=== PATIENT | female | born 1970 | race Caucasian/White ===

== ENCOUNTER → 2016-10-20 | Outpatient (CLI) | payer OTHER ==
--- NOTE | 2016-11-05 00:59 | ECWPNPC ---
PATIENT NAME: RAY RODRIGUEZ : 1970 GENDER: FEMALE VISIT DATE: 10/20/2016 DISCHARGE DATE: 10/20/16 1200 VISIT LOCKED DATE TIME: PHYSICIAN: FELIPE MCCOLLUM RESOURCE: FELIPE MCCOLLUM REASON FOR APPOINTMENT 1. MIGRANES HISTORY OF PRESENT ILLNESS HISTORY OF PRESENT ILLNESS: PAIN THE PATIENT DESCRIBES THE PAIN... FALL RISK SCREENING: SCREENING :NO FALLS IN THE PAST YEAR TODAY'S VISIT: NOTES: RATES PAIN TODAY 2/10. IS BEING CONSIDERED FOR. BOTOX TREATMENT FOR CHRONIC MIGRAINE. CURRENTLY IS TAKING 4189-9386 MG PER DAY OF IBUPROFEN FOR MIGRAINE CONTROL.REPORTS SHE HAS HAD MIGRAINES FOR MANY YEARS. MIGRAINE PAIN EFFECTS THE FOREHEAD AND TOP OF HEAD. DENIES ANY VISUAL LOSS, SCOTOMA OR AURA. DURACTION OF MIGRAINE PAIN IS CURRENTLY ONE HOUR OR LESS AND CAN OCCUR EVERY OTHER DAY OR AT LEAST 15 DAYS PER MONTHMIGRAINE EVENTS ARE ASSOCIATED WITH NAUSEA BUT NO VOMITING. MIGRAINE EVENTS ARE ALSO ASSOCIATED WITH PHOTOPHOBIA AND PHONOPHONIA. STATES DESPITE SEVERENESS OF THE HEADPAIN SHE PUSHED THROUGH HER DAILY ACTIVITIES. HAS NOT BEEN TO ED FOR MIGRAINES. PREVIOUSLY HAS BEEN TRIALED ON TOPAMAX, TRAMADOL, FIORICET FOR MIGRAINE PAIN. HAS LIMITED MEMORY OF ALL THE MEDS SHE HAS BEEN ON. CERVICAL DYSTONIA AFFECTS THE ROTATION OF HER NECK. ON BAD DAYS PAIN 6/10 WITH MIGRAINE, 7-8 WITH DYSTONIA NECK IS HARD TO MOVE. . CURRENT MEDICATIONS TAKING ZYRTEC 5 MG TABLET 1 TABLET NEEDED ORALLY ONCE A DAY TAKING SINGULAIR 10 MG TABLET 1 TABLET IN THE EVENING ORALLY ONCE A DAY TAKING SIMVASTATIN 20 MG TABLET 1 TABLET IN THE EVENING ORALLY ONCE A DAY TAKING CITALOPRAM HYDROBROMIDE 40 MG TABLET 1 TABLET ORALLY ONCE A DAY TAKING LAMOTRIGINE 150 MG TABLET 2 TABLETS ORALLY DAILY TAKING VENTOLIN HFA 108 (90 BASE) MCG/ACT AEROSOL SOLUTION 2 PUFFS NEEDED INHALATION EVERY 4 HRS TAKING TIZANIDINE HCL 2 MG TABLET 1 TABLET NEEDED ORALLY BEFORE BEDTIME MAY REPEAT IN 4 HRS MDD2 NOT-TAKING VALIUM 10 MG TABLET 1 TABLET NEEDED ORALLY 1 HR BEFORE MRI NOT-TAKING SUDAFED 30 MG TABLET 1-2 TABLET NEEDED ORALLY EVERY 6 HRS NOT-TAKING NASACORT AQ 55 MCG/ACT AEROSOL 1 PUFF IN EACH NOSTRIL NASALLY TWICE A DAY NOT-TAKING GUAIFENESIN 400 MG TABLET 1 TABLET NEEDED ORALLY EVERY 4 HRS FOR CONGESTION MEDICATION LIST REVIEWED AND RECONCILED WITH THE PATIENT PAST MEDICAL HISTORY NECK DYSTONIA LEFT HIP PAIN HYPERCHOLESTEROLEMIA DEPRESSION ALLERGIES PENICILLIN (FOR ALLERGIES USE ONLY): HIVES: ALLERGY ERYTHROMYCIN: CHEST DISCOMFORT: SIDE EFFECTS ENVIRONMENTAL: SNEEZING, HEADACHE, NASAL CONGESTION: ALLERGY SOCIAL HISTORY GENERAL: TOBACCO USE ARE YOU A:NONSMOKER LEARNING BARRIERS / SPECIAL NEEDS ORIENTED TO PLAN OF CARE: PATIENT, PAIN MANAGEMENT PATIENT, ORIENTED TO PLAN OF CARE: PATIENT, PAIN MANAGEMENT PATIENT. NEW PATIENT PAIN DIARY TODAY'S VISITNOTES FROM 0-10, WHAT LEVEL IS YOUR PAIN TODAY?0 PAIN CLINIC PFS, CLERGY, PUBLIC HEALTH REFERRALS PFS REFERRAL NEEDED?NO CLERGY REFERRAL NEEDED?NO PUBLIC HEALTH REFERRAL NEEDED?NO WAS THE PROVIDER NOTIFIED OF ANY PERTINENT INFO?NO PFS REFERRAL NEEDED?NO CLERGY REFERRAL NEEDED?NO PUBLIC HEALTH REFERRAL NEEDED?NO WAS THE PROVIDER NOTIFIED OF ANY PERTINENT INFO?NO REVIEW OF SYSTEMS CONSTITUTIONAL: ANY CHANGE IN YOUR MEDICAL CONDITION? NO . CHILLS NO . FEVER NO . INFECTION: DO YOU HAVE NEW INFECTIONS? NO . DO YOU HAVE HISTORY OF MRSA? NO . MUSCULOSKELETAL: ANY NEW PATTERNS OF PAIN OR NUMBNESS? NO . GASTROENTEROLOGY: ANY NEW CHANGE IN BOWEL CONTROL? NO . GENITOURINARY: ANY NEW CHANGE IN BLADDER CONTROL? NO . IS THERE A CHANCE YOU COULD BE ? NO . HEMATOLOGY/LYMPH: DO YOU TAKE ANY BLOOD THINNERS? (FOR EXAMPLE- COUMADIN, PLAVIX, AGGRENOX, PLATEL, PRADAXA, OR XARELTO) NO . WHEN WAS YOUR LAST DOSE? DATE: TIME: . NEUROLOGY: HAVE YOU FALLEN IN THE PAST 6 MONTHS? NO . ANY NEW EXTREMITY NUMBNESS OR WEAKNESS? NO . CARDIOLOGY: DO YOU HAVE A PACEMAKER OR DEFIBRILLATOR? NO . STROKE DENIES HISTORY OF STROKE . CHEST PAIN PATIENT DENIES . RESPIRATORY: HAVE YOU BEEN SICK IN THE PAST WEEK? NO . FEVER NO . FLU LIKE SYMPTOMS? NO . COUGH NO . INTEGUMENTARY: DO YOU HAVE ANY RASHES OR OPEN SORES? NO . ALLERGIC/IMMUNO: ARE YOU ALLERGIC TO SHELLFISH OR IV DYE? NO . ANY NEW ALLERGIES? NO . PSYCHIATRIC: DO YOU HAVE THOUGHTS OF HURTING YOURSELF OR SOMEONE ELSE? NO . ARE YOU ABUSED, NEGLECTED, OR IN AN UNSAFE ENVIRONMENT? NO . ENDOCRINOLOGY: ARE YOU DIABETIC? NO . OTHER: DO YOU NEED ANY PRESCRIPTIONS? NO . IF YES, PLEASE LIST: ____ . ANY NEW PROBLEMS WITH YOUR MEDICATIONS? NO . WHEN DID YOU LAST EAT? ____ . WHEN DID YOU LAST DRINK? ____ . WHAT DID YOU LAST DRINK? ____ . NAME OF PERSON DRIVING YOU HOME? ____ . DO YOU HAVE ANY OTHER QUESTIONS OR CONCERNS NO . PSYCHOLOGY: PATIENT COMPLAINING OF RELATED TO TIME DELAY IN OBTAINING INJECTIONS AND PAIN RELIEF . REVIEWED BY: PROVIDER: FELIPE KING . VITAL SIGNS WT 185 LBS, HT 63 IN, BMI 32.77 INDEX, BP 124/67 MM HG, HR 71 /MIN, RR 18 /MIN, TEMP 97.1 F, OXYGEN SAT % 98, NA INITIALS TL 1126, REVIEWED BY: KG. EXAMINATION GENERAL EXAMINATION: GENERAL APPEARANCE:WELL GROOMED. PSYCHALERT , ORIENTED X 3 , APPROPRIATE MOOD AND AFFECT . HEENT:NORMOCEPHALIC, NO LYMPHADEMOPHATHY, NO THYROMEGLY. LUNGS:CLEAR TO AUSCULTATION BILATERALLY, NO WHEEZES, RALES OR RHONCHI. HEART:HEART RATE REGULAR, NO MURMURS, CLICK OR RUBS. MUSCULOSKELETAL:MUSCLE STRENGTH TESTING 5/5 BILATERAL UPPER EXTREMITIES., TRIGGER POINTS:, ELICITED WITH PALPATION OVER CERVICAL SPINOUS PROCESSES AND ACROSS THE TRAPEZIUS MUSCLES BILATERALLY. RESTRICTION OF ROM IS NOTED. POINT TENDERNESS AND TIGHT FIBROUS BANDS IDENTIFIED OVER TRAPEZIUS MUSCLES, LEFT GREATER THAN RIGHT. NO TMJ CLICK OR TENDERNESS. NEUROLOGIC EXAM:CN'S II-XII GROSSLY INTACT. EOM'S INTACT WITHOUT NYSTAGMUS. FINGER TO FINGER COORDINATION IS NONDYSMETRIC. SPEACH NORMAL. SOME DIFFICULTY WITH HISTORY RECALL. DECREASED STRENGTH OF SHOULDER SHRUG ON LEFT. NO SENSORY DEFICEIT TO LIGHT TOUCH OVER FACE, NECK OR UPPER EXTREMITIES.. DIAGNOSTIC TESTS REVIEWEDMRI OF CERVICAL SPINE COMPLETED ON 09/23/16 REVIEWED: CERVICAL SPONDYLOSIS AT THE C3-4 THROUGH C6-7 LEVELS MOST SIGNIFICANT AT THE C4-5 LEVELS WITH THERE IS MINIMAL SPINAL CORD COMPRESSION. IN PARTICULAR THERE IS UNCINATE PROCESS HYPERTROPHY NOTED AT THE C3-4 LEVEL ON THE LEFT BILATERALLY AT THE C4-5 LEVEL AND LEFT FACET HYPERTROPHY IS NOTED THERE IS BILATERAL UNCINATE PROCESS HYPERTROPHY FACET HYPERTROPHY NOTED AT THE C5-6 LEVEL. THERE IS A DISC BULGE AND SMALL CENTRAL DISC PROTRUSION NOTED AT THE C5-6 LEVEL.. ASSESSMENTS CHRONIC MIGRAINE WITHOUT AURA WITHOUT STATUS MIGRAINOSUS, NOT INTRACTABLE - G43.709 (PRIMARY) SPONDYLOSIS WITHOUT MYELOPATHY OR RADICULOPATHY, CERVICAL REGION - M47.812 SPONDYLOSIS WITHOUT MYELOPATHY OR RADICULOPATHY, CERVICOTHORACIC REGION - M47.813 CERVICAL DYSTONIA. TREATMENT CHRONIC MIGRAINE WITHOUT AURA WITHOUT STATUS MIGRAINOSUS, NOT INTRACTABLE CHEMODENERVATION (BOTOX) MISC-MIGRAINE HEADACHES NOTES: COUNT INCLUDES THE [facility] SCHEDULE BOTOX FOR MIGRAINE WHEN AUTH IS IN PLACE. SPONDYLOSIS WITHOUT MYELOPATHY OR RADICULOPATHY, CERVICAL REGION NOTES: CONTINUE EXERCISES AND STRETCHES. CONTINUE CURRENT MEDS. PLAN FOR CERVICAL INJECTION NEXT WEEK. FOLLOW UP ALREADY SCEHDULED FOR CERVICAL BLOCK ON 10/27/16 ELECTRONICALLY SIGNED BY JAMILA ZUÑIGA ON 11/04/2016 AT 08:47 AM EST DISCLAIMER : THIS IS A VISIT SUMMARY EXTRACTED FROM THE [employer] CHART. IT IS NOT A COPY OF THE [employer] PROGRESS NOTE. DAVINA
== END ==
LOC: M PAIN 11:20
PROVIDERS: ATTEND Nurse Practitioner Family
DX: Z09 Encounter for follow-up examination after completed treatment for conditions other than malignant neoplasm (principal); G43.709 Chronic migraine without aura, not intractable, without status migrainosus; M47.812 Spondylosis without myelopathy or radiculopathy, cervical region; M47.813 Spondylosis without myelopathy or radiculopathy, cervicothoracic region; G24.9 Dystonia, unspecified; M25.552 Pain in left hip; E78.00 Pure hypercholesterolemia, unspecified; E32.9 Disease of thymus, unspecified; Z88.0 Allergy status to penicillin; Z88.8 Allergy status to other drugs, medicaments and biological substances; J30.89 Other allergic rhinitis; Z79.1 Long term (current) use of non-steroidal anti-inflammatories (NSAID); Z79.899 Other long term (current) drug therapy

== ENCOUNTER → 2016-10-27 | Outpatient (CLI) | payer OTHER ==
[~2016-10-27] MED LIST: ATROPINE SULF 1MG/10ML SYRINGE (J0461) As Ordered ONE; BUPIVACAINE HCL 0.25% 30 ML VIAL As Ordered ONE; ISOVUE-M 300 61% 15ML VIAL (Q9967) As Ordered ONE; LIDOCAINE 1% SDV INJ 30 ML VIAL As Ordered ONE; TRIAMCINOLONE ACETONIDE SUSP 40 MG/ML VIAL (J3301) As Ordered ONE; diazePAM 5 MG TAB As Ordered ONE; oxyCODONE 5MG TAB As Ordered ONE
--- NOTE | 2016-10-27 21:04 | REP ---
Fluoroscopic guidance for cervical facet block: 10/27/2016. Clinical history: Neck pain. Findings. A single image from C-arm fluoroscopy provided to Dr. Martins of the pain clinic for left cervical facet block. That image shows needles at the C3-4 and C4-5 levels with a total of three needles. Fluoroscopy time: 1 minute 12 seconds. Signed by Amrik Leo MD 10/28/2016 09:29 A
--- NOTE | 2016-10-30 01:12 | ECWPNPC ---
PATIENT NAME: RAY RODRIGUEZ : 1970 GENDER: FEMALE VISIT DATE: 10/27/2016 DISCHARGE DATE: 10/27/16 1741 VISIT LOCKED DATE TIME: PHYSICIAN: SKY WHITE RESOURCE: SKY WHITE REASON FOR APPOINTMENT 1. CFBT HISTORY OF PRESENT ILLNESS HISTORY OF PRESENT ILLNESS: PAIN THE PATIENT DESCRIBES THE PAIN... FALL RISK SCREENING: SCREENING :ONE FALL WITH INJURY IN THE PAST YEAR CURRENT MEDICATIONS TAKING ZYRTEC 5 MG TABLET 1 TABLET NEEDED ORALLY ONCE A DAY, NOTES: 10/26/16@1000 TAKING SINGULAIR 10 MG TABLET 1 TABLET IN THE EVENING ORALLY ONCE A DAY, NOTES: 10/26/16@999 TAKING SIMVASTATIN 20 MG TABLET 1 TABLET IN THE EVENING ORALLY ONCE A DAY, NOTES: 10/26/16@999 TAKING CITALOPRAM HYDROBROMIDE 40 MG TABLET 1 TABLET ORALLY ONCE A DAY, NOTES: 10/26/16@999 TAKING LAMOTRIGINE 150 MG TABLET 2 TABLETS ORALLY DAILY, NOTES: 10/26/16@999 TAKING VENTOLIN HFA 108 (90 BASE) MCG/ACT AEROSOL SOLUTION 2 PUFFS NEEDED INHALATION EVERY 4 HRS, NOTES: 1 WEEK AGO TAKING TIZANIDINE HCL 2 MG TABLET 1 TABLET NEEDED ORALLY BEFORE BEDTIME MAY REPEAT IN 4 HRS MDD2, NOTES: 10/25/16@1000 NOT-TAKING VALIUM 10 MG TABLET 1 TABLET NEEDED ORALLY 1 HR BEFORE MRI NOT-TAKING SUDAFED 30 MG TABLET 1-2 TABLET NEEDED ORALLY EVERY 6 HRS NOT-TAKING NASACORT AQ 55 MCG/ACT AEROSOL 1 PUFF IN EACH NOSTRIL NASALLY TWICE A DAY NOT-TAKING GUAIFENESIN 400 MG TABLET 1 TABLET NEEDED ORALLY EVERY 4 HRS FOR CONGESTION MEDICATION LIST REVIEWED AND RECONCILED WITH THE PATIENT PAST MEDICAL HISTORY NECK DYSTONIA LEFT HIP PAIN HYPERCHOLESTEROLEMIA DEPRESSION ALLERGIES PENICILLIN (FOR ALLERGIES USE ONLY): HIVES: ALLERGY ERYTHROMYCIN: CHEST DISCOMFORT: SIDE EFFECTS ENVIRONMENTAL: SNEEZING, HEADACHE, NASAL CONGESTION: ALLERGY SOCIAL HISTORY GENERAL: TOBACCO USE ARE YOU A:NONSMOKER LEARNING BARRIERS / SPECIAL NEEDS ORIENTED TO PLAN OF CARE: PATIENT, PAIN MANAGEMENT PATIENT, ORIENTED TO PLAN OF CARE: PATIENT, PAIN MANAGEMENT PATIENT. NEW PATIENT PAIN DIARY TODAY'S VISITNOTES FROM 0-10, WHAT LEVEL IS YOUR PAIN TODAY?0 PAIN CLINIC PFS, CLERGY, PUBLIC HEALTH REFERRALS PFS REFERRAL NEEDED?NO CLERGY REFERRAL NEEDED?NO PUBLIC HEALTH REFERRAL NEEDED?NO WAS THE PROVIDER NOTIFIED OF ANY PERTINENT INFO?NO PFS REFERRAL NEEDED?NO CLERGY REFERRAL NEEDED?NO PUBLIC HEALTH REFERRAL NEEDED?NO WAS THE PROVIDER NOTIFIED OF ANY PERTINENT INFO?NO REVIEW OF SYSTEMS CONSTITUTIONAL: ANY CHANGE IN YOUR MEDICAL CONDITION? NO . CHILLS NO . FEVER NO . INFECTION: DO YOU HAVE NEW INFECTIONS? NO . DO YOU HAVE HISTORY OF MRSA? NO . MUSCULOSKELETAL: ANY NEW PATTERNS OF PAIN OR NUMBNESS? NO . GASTROENTEROLOGY: ANY NEW CHANGE IN BOWEL CONTROL? NO . GENITOURINARY: ANY NEW CHANGE IN BLADDER CONTROL? NO . IS THERE A CHANCE YOU COULD BE ? NO . HEMATOLOGY/LYMPH: DO YOU TAKE ANY BLOOD THINNERS? (FOR EXAMPLE- COUMADIN, PLAVIX, AGGRENOX, PLATEL, PRADAXA, OR XARELTO) NO . WHEN WAS YOUR LAST DOSE? DATE: TIME: . NEUROLOGY: HAVE YOU FALLEN IN THE PAST 6 MONTHS? NO . ANY NEW EXTREMITY NUMBNESS OR WEAKNESS? NO . CARDIOLOGY: DO YOU HAVE A PACEMAKER OR DEFIBRILLATOR? NO . RESPIRATORY: HAVE YOU BEEN SICK IN THE PAST WEEK? NO . FEVER NO . FLU LIKE SYMPTOMS? NO . COUGH NO . INTEGUMENTARY: DO YOU HAVE ANY RASHES OR OPEN SORES? NO . ALLERGIC/IMMUNO: ARE YOU ALLERGIC TO SHELLFISH OR IV DYE? NO . ANY NEW ALLERGIES? NO . PSYCHIATRIC: DO YOU HAVE THOUGHTS OF HURTING YOURSELF OR SOMEONE ELSE? NO . ARE YOU ABUSED, NEGLECTED, OR IN AN UNSAFE ENVIRONMENT? NO . ENDOCRINOLOGY: ARE YOU DIABETIC? NO . OTHER: DO YOU NEED ANY PRESCRIPTIONS? NO . IF YES, PLEASE LIST: ____ . ANY NEW PROBLEMS WITH YOUR MEDICATIONS? NO . WHEN DID YOU LAST EAT? ____10/26/16@2200 . WHEN DID YOU LAST DRINK? ____10/26/16@2200 . WHAT DID YOU LAST DRINK? ____WATER . NAME OF PERSON DRIVING YOU HOME? ____ELISHADEEPTHI RODRIGUEZ . DO YOU HAVE ANY OTHER QUESTIONS OR CONCERNS NO . REVIEWED BY: PROVIDER: . VITAL SIGNS WT 185 LBS, HT 63 IN, BMI 32.77 INDEX, BP 103/62 MM HG, HR 61 /MIN, RR 16 /MIN, TEMP 96.0 F, OXYGEN SAT % 96, NA INITIALS TL 1434, REVIEWED BY: VD. ASSESSMENTS SPONDYLOSIS WITHOUT MYELOPATHY OR RADICULOPATHY, CERVICAL REGION - M47.812 (PRIMARY) PROCEDURES PN CERVICAL FACET BLOCK HIGH LATERAL CERVICAL PRE PROCEDURE DIAGNOSIS CERVICAL SPONDYLOSIS POST PROCEDURE DIAGNOSIS CERVICAL SPONDYLOSIS PROCEDURE LEFT C4-C5 AND LEFT C5-C6 FACET BLOCK SURGEON DR. SKY WHITE NEPHROLOGY SOCIAL WORKER NONE ANESTHESIA LOCAL PRE PROCEDURE NOTE THE PATIENT HAS HISTORY OF CHRONIC CERVICAL PAIN. I EVALUATE THE PATIENT AND REVIEWED THE CHART. I WENT OVER THE RISKS, ALTERNATIVES, AND BENEFITS ASSOCIATED WITH THIS PROCEDURE. THE PATIENT WOULD LIKE TO PROCEED AND GIVE CONSENT TO PERFORMED THE PROCEDURE. THE PATIENT DENIES UNEXPLAINABLE WEIGHT LOSS, FEVER, CHILLS, OR NEW CHANGES IN URINARY OR BOWEL CONTROL., . DESCRIPTION OF PROCEDURE THE PATIENT WAS BROUGHT TO THE PROCEDURE ROOM AND PLACED IN THE [] LATERAL DECUBITUS POSITION. THE CERVICAL AREA WAS CLEANED WITH CHLORAPREP SOLUTION AND DRAPED ASEPTICALLY. THE PROCEDURE WAS DONE UNDER STERILE CONDITIONS. I CHECKED LATERALITY AND THE LEVEL WHERE THE PROCEDURE WAS GOING TO BE PERFORMED WITH THE PATIENT AND THE SUPPORTING STAFF AT THE MOMENT OF THE TIME OUT IN THE PROCEDURE ROOM. UNDER FLUOROSCOPIC GUIDANCE, TARGET POINT WAS SELECTED AT THE LEFT C4-C5 AND LEFT C5-C6 FACET. TARGET POINTS WERE SELECTED AFTER LATERAL ROTATION AND TILT OF THE MAGNIFIER OF THE C-ARM. LIDOCAINE 0.5% WAS USED TO NUMB THE SKIN AND THE SUBCUTANEOUS TISSUE BELOW IT. SPINAL NEEDLES, 22-GAUGE, WERE ADVANCED UNDER FLUOROSCOPIC GUIDANCE AND FOLLOWING PATIENT FEEDBACK UNTIL THE TARGETS WERE TOUCHED. THE POSITION OF THE NEEDLES WAS VERIFIED WITH AP AND LATERAL VIEWS. AFTER PROPER POSITION OF THE NEEDLES WAS ACHIEVED, ISOVUE M DYE 30, 0.1 ML WAS INJECTED SHOWING SPREAD OF THE DYE. THEN A SOLUTION OF 0.9 ML OF BUPIVACAINE 0.125% AND KENALOG [10] MG WAS INJECTED AT EACH SITE. THERE WAS NO EVIDENCE OF BLOOD, PARESTHESIA OR CEREBROSPINAL FLUID DURING THE PROCEDURE. THE PATIENT WAS SENT TO THE RECOVERY ROOM. THE PATIENT WAS MOVING THE EXTREMITIES AND DOING WELL. THERE WAS NO COMPLICATION DURING THE PROCEDURE. FLUOROSCOPY TIME WAS 1 MINUTE AND 6 SECONDS POST PROCEDURE NOTE THE PATIENT WILL BE SEEN IN A FOLLOW UP IN THE NEXT FEW WEEKS. INSTRUCTIONS WERE GIVEN, QUESTIONS WERE ANSWERED, AND THE PATIENT EXPRESSED UNDERSTANDING AND AGREED WITH THE PLAN DIAGNOSTIC IMAGING [facility] FACET BLOCK (PAIN)[id number] PROCEDURE CODES 37973 INJ PARAVERT F JNT C/T 1 LEV 31945 INJ PARAVERT F JNT C/T 2 LEV 6045F RADXPS IN END [id number] PXD FOLLOW UP 3 WEEKS ELECTRONICALLY SIGNED BY SKY WHITE MD ON 10/29/2016 AT 05:57 PM EST DISCLAIMER : THIS IS A VISIT SUMMARY EXTRACTED FROM THE [employer] CHART. IT IS NOT A COPY OF THE [employer] PROGRESS NOTE. MTDD
== END ==
LOC: M PAIN 14:00
PROVIDERS: ATTEND Anesthesiology
DX: G89.29 Other chronic pain (principal); M47.812 Spondylosis without myelopathy or radiculopathy, cervical region; M54.2 Cervicalgia; G24.9 Dystonia, unspecified; Z79.899 Other long term (current) drug therapy; Z88.0 Allergy status to penicillin; Z88.1 Allergy status to other antibiotic agents; Z91.09 Other allergy status, other than to drugs and biological substances
CPT/HCPCS: 64490; 64491; J3301; Q9967

== ENCOUNTER → 2016-11-01 | Outpatient (CLI) | payer OTHER ==
--- NOTE | 2016-11-03 00:56 | ECWPNPC ---
PATIENT NAME: RAY RODRIGUEZ : 1970 GENDER: FEMALE VISIT DATE: 11/01/2016 DISCHARGE DATE: 11/01/16914 VISIT LOCKED DATE TIME: PHYSICIAN: SKY WHITE RESOURCE: SKY WHITE REASON FOR APPOINTMENT 1. NECK PAIN HISTORY OF PRESENT ILLNESS HISTORY OF PRESENT ILLNESS: PAIN THE PATIENT DESCRIBES THE PAIN... 46 YEAR OLD FEMALE PATIENT WITH HISTORY OF CHRONIC NECK PAIN. PATIENT DESCRIBES THE PAIN ACHING WITH THE PAIN COMING AND GOING WITH A PAIN SCORE OF 4/10. PATIENT RECEIVED A CERVICAL FACET BLOCK ON 10/27/16 AND STATES THAT THE INJECTION HAS HELPED WITH THE CERVICAL PAIN. PATIENT REPORTS THAT HER NECK FEELS BETTER AND HAS INCREASED MOBILITY AND FUNCTIONALITY FROM THE INJECTION. CURRENTLY THE PATIENT IS ONLY USING TIZANIDINE TO HELP WITH THE NECK PAIN AND SPASMS. PATIENT DENIES UNEXPLAINABLE WEIGHT LOSS, FEVER, CHILLS, NEW CHANGES ON HER URINARY OR BOWEL CONTROL. FALL RISK SCREENING: SCREENING :NO FALLS IN THE PAST YEAR CURRENT MEDICATIONS TAKING ZYRTEC 5 MG TABLET 1 TABLET NEEDED ORALLY ONCE A DAY, NOTES: 10/26/16@1000 TAKING SINGULAIR 10 MG TABLET 1 TABLET IN THE EVENING ORALLY ONCE A DAY, NOTES: 10/26/16@1000 TAKING SIMVASTATIN 20 MG TABLET 1 TABLET IN THE EVENING ORALLY ONCE A DAY, NOTES: 10/26/16@1000 TAKING CITALOPRAM HYDROBROMIDE 40 MG TABLET 1 TABLET ORALLY ONCE A DAY, NOTES: 10/26/16@999 TAKING LAMOTRIGINE 150 MG TABLET 2 TABLETS ORALLY DAILY, NOTES: 10/26/16@1000 TAKING VENTOLIN HFA 108 (90 BASE) MCG/ACT AEROSOL SOLUTION 2 PUFFS NEEDED INHALATION EVERY 4 HRS, NOTES: 1 WEEK AGO TAKING TIZANIDINE HCL 2 MG TABLET 1 TABLET NEEDED ORALLY BEFORE BEDTIME MAY REPEAT IN 4 HRS MDD2, NOTES: 10/25/16@1000 NOT-TAKING VALIUM 10 MG TABLET 1 TABLET NEEDED ORALLY 1 HR BEFORE MRI NOT-TAKING SUDAFED 30 MG TABLET 1-2 TABLET NEEDED ORALLY EVERY 6 HRS NOT-TAKING NASACORT AQ 55 MCG/ACT AEROSOL 1 PUFF IN EACH NOSTRIL NASALLY TWICE A DAY NOT-TAKING GUAIFENESIN 400 MG TABLET 1 TABLET NEEDED ORALLY EVERY 4 HRS FOR CONGESTION MEDICATION LIST REVIEWED AND RECONCILED WITH THE PATIENT PAST MEDICAL HISTORY NECK DYSTONIA LEFT HIP PAIN HYPERCHOLESTEROLEMIA DEPRESSION ALLERGIES PENICILLIN (FOR ALLERGIES USE ONLY): HIVES: ALLERGY ERYTHROMYCIN: CHEST DISCOMFORT: SIDE EFFECTS ENVIRONMENTAL: SNEEZING, HEADACHE, NASAL CONGESTION: ALLERGY SURGICAL HISTORY LEFT CARPAL TUNNEL RELEASE 2010 RIGHT CARPAL TUNNEL RELEASE 2010 BTL 2000 RIGHT SHOULDER SKIN CANCER REMOVAL 2014 C SECTION 1989 FAMILY HISTORY NO FAMILY HISTORY DOCUMENTED. SOCIAL HISTORY GENERAL: TOBACCO USE ARE YOU A:NONSMOKER LEARNING BARRIERS / SPECIAL NEEDS ORIENTED TO PLAN OF CARE: PATIENT, PAIN MANAGEMENT PATIENT, ORIENTED TO PLAN OF CARE: PATIENT, PAIN MANAGEMENT PATIENT. NEW PATIENT PAIN DIARY TODAY'S VISITNOTES FROM 0-10, WHAT LEVEL IS YOUR PAIN TODAY?0 PAIN CLINIC PFS, CLERGY, PUBLIC HEALTH REFERRALS PFS REFERRAL NEEDED?NO CLERGY REFERRAL NEEDED?NO PUBLIC HEALTH REFERRAL NEEDED?NO WAS THE PROVIDER NOTIFIED OF ANY PERTINENT INFO?NO PFS REFERRAL NEEDED?NO CLERGY REFERRAL NEEDED?NO PUBLIC HEALTH REFERRAL NEEDED?NO WAS THE PROVIDER NOTIFIED OF ANY PERTINENT INFO?NO HOSPITALIZATION/MAJOR DIAGNOSTIC PROCEDURE SURGERIES REVIEW OF SYSTEMS CONSTITUTIONAL: ANY CHANGE IN YOUR MEDICAL CONDITION? NO . CHILLS NO . FEVER NO . INFECTION: DO YOU HAVE NEW INFECTIONS? NO . DO YOU HAVE HISTORY OF MRSA? NO . MUSCULOSKELETAL: ANY NEW PATTERNS OF PAIN OR NUMBNESS? NO . GASTROENTEROLOGY: ANY NEW CHANGE IN BOWEL CONTROL? NO . GENITOURINARY: ANY NEW CHANGE IN BLADDER CONTROL? NO . IS THERE A CHANCE YOU COULD BE ? NO . HEMATOLOGY/LYMPH: DO YOU TAKE ANY BLOOD THINNERS? (FOR EXAMPLE- COUMADIN, PLAVIX, AGGRENOX, PLATEL, PRADAXA, OR XARELTO) NO . WHEN WAS YOUR LAST DOSE? DATE: TIME: . NEUROLOGY: HAVE YOU FALLEN IN THE PAST 6 MONTHS? NO . ANY NEW EXTREMITY NUMBNESS OR WEAKNESS? NO . CARDIOLOGY: DO YOU HAVE A PACEMAKER OR DEFIBRILLATOR? NO . RESPIRATORY: HAVE YOU BEEN SICK IN THE PAST WEEK? NO . FEVER NO . FLU LIKE SYMPTOMS? NO . COUGH NO . INTEGUMENTARY: DO YOU HAVE ANY RASHES OR OPEN SORES? NO . ALLERGIC/IMMUNO: ARE YOU ALLERGIC TO SHELLFISH OR IV DYE? NO . ANY NEW ALLERGIES? NO . PSYCHIATRIC: DO YOU HAVE THOUGHTS OF HURTING YOURSELF OR SOMEONE ELSE? NO . ARE YOU ABUSED, NEGLECTED, OR IN AN UNSAFE ENVIRONMENT? NO . ENDOCRINOLOGY: ARE YOU DIABETIC? NO . OTHER: DO YOU NEED ANY PRESCRIPTIONS? YES, TIZANIDINE . IF YES, PLEASE LIST: ____ . ANY NEW PROBLEMS WITH YOUR MEDICATIONS? NO . WHEN DID YOU LAST EAT? ____ . WHEN DID YOU LAST DRINK? ____ . WHAT DID YOU LAST DRINK? ____ . NAME OF PERSON DRIVING YOU HOME? ____ . DO YOU HAVE ANY OTHER QUESTIONS OR CONCERNS NO . REVIEWED BY: PROVIDER: SKY WHITE MD . VITAL SIGNS WT 190 LBS, HT 63 IN, BMI 33.65 INDEX, BP 114/76 MM HG, HR 54 /MIN, RR 16 /MIN, TEMP 97.9 F, OXYGEN SAT % 98%, NA INITIALS SC 08:58, REVIEWED BY: AD. EXAMINATION : PATIENT IS ALERT O X 3 AND COOPERATIVE. TENDERNESS IN THE CERVICAL AREA. PATIENT FEELS PULL TOWARDS THE LEFT SHOULDER. MRI OF THE CERVICAL SPINE DONE ON 09/23/16 SHOWS CERVICAL SPONDYLOSIS AND DISC BULGES AT C3-C4 THROUGH C6-C7. ASSESSMENTS SPONDYLOSIS WITHOUT MYELOPATHY OR RADICULOPATHY, CERVICAL REGION - M47.812 (PRIMARY) TREATMENT SPONDYLOSIS WITHOUT MYELOPATHY OR RADICULOPATHY, CERVICAL REGION NOTES: WE DISCUSSED SEVERAL ISSUES WITH MRS. RODRIGUEZ'S PAIN MANAGEMENT CASE. AT THIS TIME THE PATIENT WILL CONTINUE WITH THE SAME MEDICATION REGIME BEFORE. PATIENT REPORTS HAVING RELIEF FROM THE CERVICAL FACET BLOCK. PATIENT IS WAITING TO HEAR FROM DR. VELASQUEZ'S OFFICE FOR THE BOTOX FOR DYSTONIA. I WOULD ALSO LIKE TO SPEAK WITH THE BOTOX PAPER COATING SUPERVISOR TO CHECK TO SEE HOW OFTEN THE PATIENT CAN GET BOTOX. PATIENT IS A CANDIDATE FOR BOTOX FOR THE MIGRAINES BUT ALSO WOULD NEED IT FOR THE DYSTONIA. PATIENT WILL RETURN TO THE CLINIC IN 1 MONTH TO DISCUSS HER CASE FURTHER WITH FELIPE CASE. INSTRUCTIONS WERE GIVEN, QUESTIONS WERE ANSWERED, PATIENT REPORTS UNDERSTANDING AND AGREES WITH THE PLAN. I, KULDEEP MARCELINO, DOCUMENTED THE ABOVE INFORMATION ACTING A SCRIBE FOR DR. WHITE. I HAVE REVIEWED THE ABOVE DOCUMENT, WRITTEN BY KULDEEP RENE AND I VERIFY THAT IT IS ACCURATE. PROCEDURE CODES FA211 ESTABILISHED PATIENT [facility] CHARGE C9979 DOC MEDS VERIFIED W/PT OR RE R3440 PAIN ASSESS POS TOOL F/U PLAN DOC FOLLOW UP 4 WEEKS ELECTRONICALLY SIGNED BY SKY WHITE MD ON 11/02/2016 AT 02:15 PM EST DISCLAIMER : THIS IS A VISIT SUMMARY EXTRACTED FROM THE [employer] CHART. IT IS NOT A COPY OF THE [employer] PROGRESS NOTE. DAVINA
== END ==
LOC: M PAIN 08:40
PROVIDERS: ATTEND Anesthesiology
DX: Z09 Encounter for follow-up examination after completed treatment for conditions other than malignant neoplasm (principal); G89.29 Other chronic pain; M47.812 Spondylosis without myelopathy or radiculopathy, cervical region; G24.3 Spasmodic torticollis; E78.00 Pure hypercholesterolemia, unspecified; F32.9 Major depressive disorder, single episode, unspecified; Z88.0 Allergy status to penicillin; Z88.1 Allergy status to other antibiotic agents; J30.2 Other seasonal allergic rhinitis; Z79.899 Other long term (current) drug therapy

== ENCOUNTER 2017-08-03 03:11 | Emergency (ER) | payer OTHER, SELFPAY ==
[~2017-08-03] VITALS: Ht 160 cm; Wt 86.4 kg
--- NOTE | 2017-08-03 04:00 | REPUSA ---
CLINICAL HISTORY: Neck pain. TECHNIQUE: Multiple axial images were obtained through the cervical spine. Images were also reconstru cted in coronal and sagittal planes. The study was performed without IV contrast. COMMENTS: There is no fracture or spondylolisthesis visualized. The paraspinal soft tissues are unremarkable. T here are no lytic or blastic lesions. Straightening of cervical lordosis is seen, suggesting muscular spasm. There is evidence of multilev el disk disease, demonstrated by osteophytosis and endplate sclerosis. Mild multilevel degenerative disc disease. IMPRESSION: 1. No fracture or spondylolisthesis. 2. Straightening of cervical lordosis is seen, suggesting muscular spasm. 3. Multilevel spondylosis. Thank you for your kind referral of this patient.
--- NOTE | 2017-08-03 04:00 | REPUSA ---
CLINICAL HISTORY: Head trauma. TECHNIQUE: Multiple axial brain CT scan sections were obtained from base to vertex without contrast a dministration. COMMENTS: Right frontal, temporal acute subarachnoid hemorrhage. There is no evidence of skull fracture. The study shows normal configuration of sella turcica. There is no mass effect or midline shift. No hydrocephalus is present. No abnormal calcifications are noted. No other acute significant abnormalities are seen either in the posterior fossa or supratentorial com partment. The sinuses and mastoid air cells are patent. IMPRESSION: Right frontal, temporal acute subarachnoid hemorrhage. No associated mass effect or brain herniation. No associated significant edema. No skull fracture. Thank you for your kind referral of this patient.
--- NOTE | 2017-08-03 04:14 | REP ---
Clinical: Trauma. Fall. Technique: AP, lateral, bilateral oblique views of the right wrist. Findings: There is a comminuted Colles' fracture of the distal radial metaphysis extending through the articular surface with posterolateral displacement fracture fragments as well as a nondisplaced ulnar styloid fracture. Fracture of the carpal bones and subtle subluxation through the proximal carpal row cannot be excluded at this time. Surrounding soft tissue swelling noted. Impression: 1. Comminuted Colles' fracture of the distal radius along with nondisplaced ulnar styloid fracture. 2. Subluxation and widening through the scapholunate space and possible subtle fractures involving the maximal carpal row cannot be excluded. Signed by Ray Multani MD 08/03/2017 04:06 A
[2017-08-03 05:15] LABS: BASO % 0.4 % (0.0-1.0); EOS # 0.1 10^3/uL (0.0-0.50); EOS % 0.5 % (0.0-3.0); IMMATURE GRANULOCYTE % 0.3 % (0-0); LYMPH # 1.1 10^3/uL (1.5-4.5); LYMPH % 10.2 % (24.0-44.0); MEAN CORPUSCULAR HEMOGLOBIN 29.6 pg (27.0-33.0); MEAN CORPUSCULAR HGB CONC 32.7 g/dl (32.0-36.5); MEAN CORPUSCULAR VOLUME 90.7 fl (80.0-96.0); MONO # 0.6 10^3/uL (0.0-0.8); MONO % 5.5 % (0.0-5.0); NEUTROPHILS # 8.9 10^3/uL (1.8-7.7); NEUTROPHILS % 83.1 % (36.0-66.0); PLATELET COUNT, AUTOMATED 219 10^3/uL (150-450); RED CELL DISTRIBUTION WIDTH 13.2 % (11.5-14.5); WHITE BLOOD COUNT 10.7 10^3/uL (4.0-10.0)
[2017-08-03 06:15] VITALS: BP 115/71
[2017-08-03] MEDS ORDERED: MORPHINE 2 MG/ML 1ML SYRINGE IV ONE (07:00)
[2017-08-09] MEDS ORDERED: SING10TA32 PO (11:59)
[2017-08-09] MEDS ORDERED: CLON1TAB PO (11:59)
[2017-08-09] MEDS ORDERED: LAMO300T PO (11:59)
[2017-08-09] MEDS ORDERED: CITA20TA4 PO (11:59)
[2017-08-09] MEDS ORDERED: SIMV20TA2 PO (11:59)
[2017-08-09] MEDS ORDERED: PERC5TAB12 PO (12:01)
[2017-08-09] MEDS ORDERED: VENTAER INH (12:05)
== END 2017-08-03 06:56 | disposition short-term general hospital (02) ==
LOC: M ED 03:11
DX: S06.6X0A Traumatic subarachnoid hemorrhage without loss of consciousness, initial encounter (principal); S52.531A Colles' fracture of right radius, initial encounter for closed fracture; S52.611A Displaced fracture of right ulna styloid process, initial encounter for closed fracture; W10.9XXA Fall (on) (from) unspecified stairs and steps, initial encounter; Y92.019 Unspecified place in single-family (private) house as the place of occurrence of the external cause; Y93.89 Activity, other specified; Y99.8 Other external cause status; J44.9 Chronic obstructive pulmonary disease, unspecified; J45.909 Unspecified asthma, uncomplicated; F17.210 Nicotine dependence, cigarettes, uncomplicated; Z88.0 Allergy status to penicillin

== ENCOUNTER → 2018-09-13 | Outpatient (CLI) | payer OTHER ==
[~2018-09-13] MED LIST changes: -ATROPINE SULF 1MG/10ML SYRINGE (J0461) As Ordered ONE; -BUPIVACAINE HCL 0.25% 30 ML VIAL As Ordered ONE; +E-Z-GAS II EFFERVESCENT PACKET (SODIUM BICARB./CITRIC ACID/SIMETHICONE) As Ordered; +E-Z-HD 98% w/w 340GM SUSP BTL As Ordered; +E-Z-PAQUE 96% w/w SUSP 176GM BTL As Ordered; -ISOVUE-M 300 61% 15ML VIAL (Q9967) As Ordered ONE; -LIDOCAINE 1% SDV INJ 30 ML VIAL As Ordered ONE; -TRIAMCINOLONE ACETONIDE SUSP 40 MG/ML VIAL (J3301) As Ordered ONE; -diazePAM 5 MG TAB As Ordered ONE; -oxyCODONE 5MG TAB As Ordered ONE
== END ==
LOC: M RAD 11:30
DX: R13.10 Dysphagia, unspecified (principal); K59.8 Other specified functional intestinal disorders; Z87.891 Personal history of nicotine dependence
CPT/HCPCS: 74220

== ENCOUNTER → 2018-11-25 | Outpatient (CLI) | payer OTHER ==
[~2018-11-25] MED LIST changes: +CITA20TA4 PO; +CLON1TAB8 PO; -E-Z-GAS II EFFERVESCENT PACKET (SODIUM BICARB./CITRIC ACID/SIMETHICONE) As Ordered; -E-Z-HD 98% w/w 340GM SUSP BTL As Ordered; -E-Z-PAQUE 96% w/w SUSP 176GM BTL As Ordered; +LAMO300T PO; +PERC5TAB12 PO; +SIMV20TA2 PO; +SING10TA32 PO; +VENTAER INH
--- NOTE | 2018-11-27 12:18 | REP ---
MR CERVICAL SPINE WITHOUT CONTRAST: HISTORY: Radiculopathy. COMPARISON: 09/23/2016 A disc bulge and small central disc protrusion are present at the C3-4 level. There is minimal effacement of the thecal sac without spinal cord compression. Uncinate process hypertrophy is present on the left. This produces minimal narrowing of the left C3 neural foramen. The right C3 neural foramen is patent. A disc bulge with associate osteophyte formation is present at the C4-5 level. There is mild effacement of the thecal sac without spinal cord compression. Bilateral uncinate process and left facet hypertrophy are present. These findings produce minimal and moderate narrowing of the right and left C4 neural foramina, respectively. A disc bulge and small central disc protrusion are present at the C5-6 level. There is mild effacement of the thecal sac without spinal cord compression. Bilateral uncinate process and left facet hypertrophy are present. These findings produce minimal and mild narrowing of the right and left C5 neural foramina, respectively. A small central disc protrusion is present at the C6-7 level. There is minimal effacement of the thecal sac without spinal cord compression. The C6 neural foramen are patent. There is no other disc bulge or herniation. The remaining neural foramina are patent. The spinal cord is normal in signal intensity. The C4-5 through C6-7 intervertebral discs are decreased in height consistent with disc degeneration. Normal signal intensity is present in the cervical vertebral bodies. IMPRESSION: There is cervical spondylosis at the C3-4 through C6-7 levels without spinal cord compression. There has been progression of the foraminal narrowing on the left at the C5-6 level. There is no other significant change. Electronically Signed by Main Meraz MD 11/27/2018 12:27 P
== END ==
LOC: M RAD 08:34
PROVIDERS: ATTEND Physician Assistant
DX: M50.21 Other cervical disc displacement, high cervical region (principal); M47.812 Spondylosis without myelopathy or radiculopathy, cervical region; M50.221 Other cervical disc displacement at C4-C5 level; M50.222 Other cervical disc displacement at C5-C6 level; M50.223 Other cervical disc displacement at C6-C7 level; M47.892 Other spondylosis, cervical region

== ENCOUNTER 2018-12-21 06:45 | Day surgery (SDC) | payer OTHER ==
[~2018-12-21] VITALS: Ht 160 cm; Wt 78.5 kg
[~2018-12-21 06:45] MED LIST changes: +CETI10TA PO; +NS 1,000 ML IV ONE; +OMEP20CA3 PO; +OXYC10TA3 PO
[2018-12-21] MEDS ORDERED: PROPOFOL 200 MG/20 ML VIAL As Ordered ONE (07:30)
[2018-12-21] MEDS ORDERED: LIDOCAINE 2% INJ 100 MG/5 ML SDV (FOR ANES.) As Ordered ONE (07:30)
--- NOTE | 2018-12-21 07:48 | ROOR ---
Patient Name: Asiya Bertrand Procedure Date: 12/21/2018 7:30 AM Date of : 1970 Age: 48 Room: [facility] Gender: Female Note Status: Finalized Procedure: Upper GI endoscopy Indications: Dysphagia, Heartburn Providers: Speedy MAURICIO MD Referring MD: JAYLON IYER MD Requesting Provider: Medicines: Monitored Anesthesia Care Complications: No immediate complications. Procedure: Pre-Anesthesia Assessment: - The heart rate, respiratory rate, oxygen saturations, blood pressure, adequacy of pulmonary ventilation, and response to care were monitored throughout the procedure. The Endoscope was introduced through the mouth, and advanced to the second part of duodenum. The upper GI endoscopy was accomplished without difficulty. The patient tolerated the procedure well. Findings: Non-severe esophagitis was found at the gastroesophageal junction. Biopsies were taken with a cold forceps for histology. No endoscopic abnormality was evident in the esophagus to explain the patient's complaint of dysphagia. This was biopsied with a cold forceps for evaluation of eosinophilic esophagitis. The entire examined stomach was normal. Bilious fluid was found in the entire examined stomach. The examined duodenum was normal. Impression: - Mild distal reflux esophagitis at GE junction. Biopsied distal esophagus for r/o reflux/short BE. - No endoscopic esophageal abnormality to explain patient's dysphagia. Biopsied mid and proximal esophagus for r/o eosinophilic esophagitis. - Normal stomach. - Bilious gastric fluid. - Normal examined duodenum. Recommendation: - Use Prilosec (omeprazole) 20 mg PO daily. - Telephone endoscopist for pathology results in 2 weeks. Speedy Mauricio MD Speedy MAURICIO MD 12/21/2018 7:47:34 AM This report has been signed electronically. Number of Addenda: 0 Note Initiated On: 12/21/2018 7:30 AM Estimated Blood Loss: Estimated blood loss: none.
[2018-12-21 08:00] VITALS: BP 100/65
== END 2018-12-21 08:10 | disposition home or self-care (01) ==
LOC: M OPP 06:45
PROVIDERS: ATTEND Internal Medicine Gastroenterology
DX: R13.10 Dysphagia, unspecified (principal); R12 Heartburn; K21.0 Gastro-esophageal reflux disease with esophagitis; F17.210 Nicotine dependence, cigarettes, uncomplicated; E78.00 Pure hypercholesterolemia, unspecified; Z88.0 Allergy status to penicillin; Z88.1 Allergy status to other antibiotic agents; Z79.899 Other long term (current) drug therapy

== ENCOUNTER → 2019-05-09 | Outpatient (CLI) | payer OTHER ==
[~2019-05-09] MED LIST changes: -CITA20TA4 PO; +CITA20TA6 PO; -NS 1,000 ML IV ONE; -OMEP20CA3 PO; +OMEP20CA4 PO
--- NOTE | 2019-05-09 17:26 | REP ---
Wrist four views: Comparison is 08/03/2017. On the comparison study there was a comminuted fracture of the distal radius. There has been interval internal fixation. The previous fracture the radius has healed. The previous fracture of the ulnar styloid is ununited. On the current study there is no acute fracture or dislocation. 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 Mineralization is normal. There are no calcifications. There is soft tissue edema. Impression: Soft tissue edema. No acute fracture. Internal fixation of the distal radius. The previous ulnar styloid fracture is ununited. Electronically Signed by Jeremie Snyder MD 05/09/2019 05:17 P
== END ==
LOC: M LRY 16:46
PROVIDERS: ATTEND Physician Assistant
DX: S69.91XA Unspecified injury of right wrist, hand and finger(s), initial encounter (principal); X58.XXXA Exposure to other specified factors, initial encounter; Y92.89 Other specified places as the place of occurrence of the external cause
CPT/HCPCS: 73110; G0463

== ENCOUNTER → 2019-08-24 | Outpatient (CLI) | payer OTHER ==
--- NOTE | 2019-08-24 11:12 | REP ---
MRI lumbar spine: 08/24/2019. Indication: Low back pain, lumbar radiculopathy. Comparison: None. Technique: Multiplanar short and long TR sequences of the lumbar spine were obtained without IV Gadolinium. Findings: Vertebral body alignment is within anatomical limits. Disc dessication is present at the L4/L5 and L5/S1. No worrisome marrow signal is detected. The visualized cord is normal. No significant paraspinal soft tissue abnormalities are present. L1/L2, L2/L3 and L3/L4: There are no disc herniations or areas of significant spinal canal / neural foraminal narrowing. L4/L5: Diffuse disc bulge is present with suspected superimposed far right lateral small disc protrusion. There is minimal bilateral recess narrowing. There is moderate right and mild left neural foraminal narrowing. L5/S1: There is a left paracentral disc protrusion superimposed on a mild diffuse disc bulge. The herniated disc does contact the left S1 nerve root within the recess. There is no significant neural foraminal narrowing. The right lateral recess is clear. Impression: Left paracentral L5/S1 disc herniation. Additional degenerative sequelae of the lower lumbar spine as described. Electronically Signed by Corbin Almodovar DO 08/24/2019 11:03 A
== END ==
LOC: M RAD 08:00
PROVIDERS: ATTEND Pain Medicine Interventional Pain Medicine
DX: M51.26 Other intervertebral disc displacement, lumbar region (principal); M51.27 Other intervertebral disc displacement, lumbosacral region

== ENCOUNTER → 2019-10-20 | Outpatient (CLI) | payer OTHER ==
[~2019-10-20] MED LIST changes: +OMEP1CAP73 PO; -OMEP20CA4 PO; -SIMV20TA2 PO; +SIMV20TA22 PO
--- NOTE | 2019-10-20 14:25 | REP ---
Chest x-ray: Two views. History: Cough x2 weeks. No comparison chest x-ray. Findings: The patient is rotated slightly to the right for the frontal exposure. The lungs are well inflated and clear. Pleural angles are sharp. Heart size is normal. No significant bony abnormality. There are degenerative disc changes in the thoracic spine. Impression: No active disease. Electronically Signed by Jose Tracey MD 10/20/2019 02:16 P
== END ==
LOC: M LRY 13:52
PROVIDERS: ATTEND Nurse Practitioner Family
DX: M51.34 Other intervertebral disc degeneration, thoracic region (principal); R05 Cough
CPT/HCPCS: 71046; 94640; G0463

== ENCOUNTER → 2020-11-12 | Outpatient (CLI) | payer OTHER ==
[~2020-11-12] MED LIST changes: +PROHANCE 279.3MG/ML 15ML VIAL As Ordered ONE
--- NOTE | 2020-11-12 14:50 | REP ---
INDICATION: MICROCALCS FOUND ON DIAGNOSTIC IMAGING OF BREAST. COMPARISON: Comparison mammography images are rib available from 16 October [facility]. TECHNIQUE: Three Samia MRI imaging was performed with a dedicated breast coil. Axial, coronal, and sagittal T1 and T2 weighted scans were obtained with and without fat saturation in the usual fashion. The study includes dynamically acquired post gadolinium-enhanced imaging with image subtraction. Maximum intensity projection and multi planar reformation imaging is included as well. This study is interpreted with the aid of [employer], an FDA approved computer aided detection (CAD) software program, on a dedicated breast MRI workstation. The gadolinium enhancement dose is 15 mL of intravenous ProHance. FINDINGS: There are mild fibroglandular elements bilaterally in a pattern which is symmetric. There is no evidence of axillary lymphadenopathy on either side. No significant breast cystic changes seen on T2 weighted scans. High-resolution pre and post gadolinium enhanced images show no suspicious morphologic abnormality in either breast. Dynamically acquired sequential postcontrast MR images of both breasts show no suspicious area of enhancement and/or washout in either breast to suggest malignancy. There is a mild symmetric pattern of background parenchymal enhancement. Subtraction images show no additional abnormality. IMPRESSION: BI-RADS category 1-bilateral breast MRI findings. Since it is known that breast MRI scanning can be negative in the face of small amounts of ductal carcinoma in situ, decision regarding biopsy of microcalcifications on mammography must be made based on mammographic findings. <Electronically signed by Odilon Tracey > 11/12/20 1554
== END ==
LOC: M RAD 12:33
PROVIDERS: ATTEND Student in an Organized Health Care Education/Training Program
DX: R92.8 Other abnormal and inconclusive findings on diagnostic imaging of breast (principal)

== ENCOUNTER → 2022-05-10 | Outpatient (CLI) | payer OTHER ==
[~2022-05-10] MED LIST changes: -PROHANCE 279.3MG/ML 15ML VIAL As Ordered ONE
== END ==
LOC: M WHC 12:03
PROVIDERS: ATTEND Nurse Practitioner Women's Health
DX: R92.1 Mammographic calcification found on diagnostic imaging of breast (principal)
CPT/HCPCS: 77066; G0279

== ENCOUNTER 2022-12-24 13:15 | Day surgery (SDC) | payer OTHER ==
[~2022-12-24] VITALS: Ht 160 cm; Wt 70.3 kg
[~2022-12-24 13:15] MED LIST changes: +LAMO100T3 PO; +MONT-5 PO; +NS 1,000 ML IV ONE; +SIMV40TA20 PO; -SING10TA32 PO; +ZOLO100T PO
[2022-12-24] MEDS ORDERED: LIDOCAINE 2% 100MG/5ML SDV (FOR ANES.) As Ordered ONE (15:20)
[2022-12-24] MEDS ORDERED: fentaNYL 100 MCG/2 ML INJECTION As Ordered ONE (15:20)
[2022-12-24 16:00] VITALS: BP 125/72
== END 2022-12-24 16:26 | disposition home or self-care (01) ==
LOC: M OPP 13:15
PROVIDERS: ATTEND Internal Medicine Gastroenterology
DX: K22.89 Other specified disease of esophagus (principal); K22.70 Barrett's esophagus without dysplasia; F17.200 Nicotine dependence, unspecified, uncomplicated; E78.00 Pure hypercholesterolemia, unspecified; F32.9 Major depressive disorder, single episode, unspecified; F41.9 Anxiety disorder, unspecified; J45.909 Unspecified asthma, uncomplicated; Z79.02 Long term (current) use of antithrombotics/antiplatelets; Z79.899 Other long term (current) drug therapy; Z88.0 Allergy status to penicillin; Z88.1 Allergy status to other antibiotic agents; Z80.49 Family history of malignant neoplasm of other genital organs; Z90.3 Acquired absence of stomach [part of]
CPT/HCPCS: 43239; 88305; J3010

== ENCOUNTER → 2024-03-02 | Outpatient (CLI) | payer OTHER ==
[~2024-03-02] MED LIST changes: -NS 1,000 ML IV ONE
== END ==
LOC: M WHC 07:08
PROVIDERS: ATTEND Student in an Organized Health Care Education/Training Program
DX: Z12.31 Encounter for screening mammogram for malignant neoplasm of breast (principal)